=== PATIENT | male | born 1965 | race Caucasian/White ===

== ENCOUNTER 2023-03-21 16:17 | Inpatient (IN) | payer MEDICARE, OTHER ==
[~2023-03-21] VITALS: Ht 180.3 cm; Wt 68.0 kg
--- NOTE | 2023-03-21 16:54 | NUR ---
PAGED TUBE SORTER
--- NOTE | 2023-03-21 16:55 | NUR ---
lionel KERN [facility] for medical clearance prior to geropsych admit per report pt aggressive to staff.
[2023-03-21] MEDS ORDERED: OLANZAPINE 10 MG VIAL IM ONE ×2 (17:30→17:42)
[2023-03-21 17:51] LABS: BASOPHILS # (AUTO) 0.1 K/uL (0.0-0.2); BASOPHILS % (AUTO) 0.9 % (0.0-2.0); EOSINOPHILS % (AUTO) 1.7 % (0.0-6.0); HEMATOCRIT 50 % (39-51); HEMOGLOBIN 15.9 g/dL (13.5-17.5); LYMPHOCYTES # (AUTO) 1.6 K/uL (0.8-4.8); LYMPHOCYTES % (AUTO) 19.7 % (20.0-44.0); MEAN CORPUSCULAR HGB CONC 32 g/dl (31.0-36.0); MEAN CORPUSCULAR VOLUME 96 fL (80-96); MONOCYTES # (AUTO) 0.8 K/uL (0.1-1.30); MONOCYTES % (AUTO) 9.7 % (2.0-12.0); NEUTROPHILS # (AUTO) 5.6 K/uL (1.8-8.9); PLATELET COUNT (AUTO) 395 K/uL (150-450); RED BLOOD CELL COUNT(AUTO) 5.18 MIL/uL (4.5-6.0); WHITE BLOOD COUNT (AUTO) 8.2 K/uL (4.3-11.0)
[2023-03-21] MEDS ORDERED: IBUP-1953 PO (18:04)
[2023-03-21] MEDS ORDERED: HALO5SYR IM (18:04)
[2023-03-21] MEDS ORDERED: OXYC-128 PO (18:04)
[2023-03-21] MEDS ORDERED: POLY17PO4 PO (18:04)
[2023-03-21] MEDS ORDERED: ONDA4TAB5 PO (18:04)
[2023-03-21] MEDS ORDERED: TAMS-12 PO (18:04)
[2023-03-21] MEDS ORDERED: LORA-259 PO (18:04)
[2023-03-21] MEDS ORDERED: MEMA10TA PO (18:04)
[2023-03-21] MEDS ORDERED: BUSP5TAB3 PO (18:04)
[2023-03-21] MEDS ORDERED: QUET25TA PO (18:04)
[2023-03-21] MEDS ORDERED: VALP250S4 PO (18:04)
[2023-03-21] MEDS ORDERED: DIPH50VI14 IM (18:04)
[2023-03-21 18:12] LABS: ALANINE AMINOTRANSFERASE 18 U/L (12-78); ALBUMIN 3.6 g/dL (3.4-5.0); ALCOHOL, BLOOD < 3 mg/dL (0-0); ALKALINE PHOSPHATASE 74 U/L (46-116); ASPARTATE AMINOTRANSFERASE 37 U/L (15-37); BILIRUBIN,DIRECT 0.1 mg/dL (0.0-0.2); BILIRUBIN,TOTAL 0.7 mg/dL (0.2-1.0); CALCIUM, SERUM 9.2 mg/dL (8.5-10.1); CARBON DIOXIDE 23 mmol/L (21-32); CHLORIDE 107 mmol/L (98-107); CREATININE 1.1 mg/dL (0.6-1.3); GLUCOSE 98 mg/dL (74-106); POTASSIUM 4.3 mmol/L (3.5-5.1); SODIUM SERUM 142 mmol/L (136-145); TOTAL PROTEIN, SERUM 7.6 g/dL (6.4-8.2); UREA NITROGEN, BLOOD 10 mg/dL (7-18)
[2023-03-21] MEDS ORDERED: oxyCODONE/APAP (5/325 MG) 1 UDTAB TABLET PO PRN (19:30)
[2023-03-21] MEDS ORDERED: POLYETHYLENE GLYCOL 3350 17 GM POWD.PACK PO PRN (19:30)
[2023-03-21] MEDS ORDERED: IBUPROFEN 400 MG TABLET PO PRN (19:30)
--- NOTE | 2023-03-21 20:05 | NUR ---
SUBMITTED MOVESHEET TO ADMITTING
--- NOTE | 2023-03-21 20:19 | NUR ---
REPORT GIVEN TO MACHO GALLARDO RN FOR QUYEN
[2023-03-21] MEDS ORDERED: ONDANSETRON HCL 4 MG/5 ML SOLUTION PO PRN (20:30)
[2023-03-21] MEDS ORDERED: ONDANSETRON 4 MG TAB.RAPDIS PO PRN (21:00)
[2023-03-21] MEDS ORDERED: MAGNESIUM HYDROXIDE 30 ML UDC PO PRN (21:30)
[2023-03-21] MEDS ORDERED: MAG HYDROX/AL HYDROX/SIMETH 30 ML UDC PO PRN (21:30)
[2023-03-21] MEDS ORDERED: ACETAMINOPHEN 325 MG TABLET PO PRN (21:30)
[2023-03-21] MEDS ORDERED: ZOLPIDEM TARTRATE 5 MG TABLET PO PRN (21:30)
[2023-03-21] MEDS ORDERED: BLOOD SUGAR DIAGNOSTIC 1 EACH STRIP IN ONE (22:00)
[2023-03-21 23:31] VITALS: BP 123/76
--- NOTE | 2023-03-21 23:50 | NUR ---
RN NOTES : ADMISSION NOTES: ADMITTED THIS 57Y/O MALE PATIENT ADMITTED FROM [facility], INITIALLY FROM SNF . ADMITTED TO 5150 HOLD PER HOLD GD , INCREASED AGITATION AND CONFUSION PT. AGITATED , CONFUSED DISORGNIZED ,NOT SLEEPING ,NON-COMPLIANT WITH MEDICATIONS AGGRESSIVE, UPON FACE TO FACE ASSESSMENT PATIENT IS A&OX1 , CONFUSED , ANXIOUS EASILY AGITATED ,DISORGNIZED, DISHELVED,POOR HYGINE, UNCOOPERTIVE,POOR DECISION MAKING,DENIES SI /HI AT THIS TIME, PT. IS POOR HISTORIAN, POOR INSIGHT ,POOR JUDGEMENT , BOTH MD AWARE AND NOTIFIED OF THE ADMISSION, BELONGINGS CONTRABAND WERE DONE , PT. REFUSED SIGNS ADMISSION CONSENT PAPER DUE TO CONFUSED,DISORGNIZED , PT. RIGHTS DISCUSS BY SUPERVISING LIBRARIAN , PROVIDE THE PT. WITH HANDBOOK, AND MEDICATIONS GUIDE, ENVIRONMENTAL SAFETY CHECK DONE, ENCOURAGED PT. VERBALIZED ANY FEELING CONCERN TO STAFF, ORIENT TO UNIT POLICY, NO ACUTE DISTRESS NOTED,VITAL SIGNS WNL ,DENIES ANY PAIN AT THIS TIME,WILL CONTINUE TO MONITOR FOR Q15 SAFETY AND BEHAVIOR.
--- NOTE | 2023-03-22 06:51 | NUR ---
RN NOTES: PT. REFUSED AM LABS DRAW , ENCOURAGED X 3 PT. STRONGLY REFUSED.
--- NOTE | 2023-03-22 07:43 | NUR ---
WOUND CARE CONSULT: PT RESTING AT THIS TIME. REVIEWED ADMISSION PHOTOS, CHART AND NURSING DOCUMENTATION WHICH INDICATES DRY SCABS/DISCOLORATIONS TO ARMS AND REDNESS/RASH TO PERINEAL AND INNER BUTTOCKS AREAS, PRESENT ON ADMISSION. RECOMMENDATIONS MADE FOR SKIN PROTECTION. DISCUSSED WITH NURSING STAFF. MD IN AGREEMENT WITH PLAN OF CARE.
[2023-03-22 08:00] VITALS: BP 140/84
[2023-03-22] MEDS: POLYETHYLENE GLYCOL 3350 17 GM POWD.PACK PO SCH (08:49)
[2023-03-22] MEDS: Z GUARD REMEDY 4 OZ OINT TP SCH (08:51)
[2023-03-22] MEDS: MEMANTINE HCL 5 MG TABLET PO SCH ×2 (08:51→17:00)
[2023-03-22] MEDS: CLOTRIMAZOLE 1% 15 GM TUBE TP SCH ×2 (08:52→17:45)
--- NOTE | 2023-03-22 09:50 | NUR ---
PAWEL Initial Discharge Note: Patient was at [facility] and then he was transferred to [address] [address]. Pt's brother in law Maxwell ([phone]) does not want pt to return back to [facility] and would want a different facility. PAWEL and Dr. Lindsay discussed pt's treatment/discharge plan. PAWEL will work with the MD, family, and treatment team to help coordinate appropriate discharge.
--- NOTE | 2023-03-22 09:50 | NUR ---
PAWEL Clinical Note: Pt placed on a 5150 hold for GD. Pt was aggressive at his facility. Patient was at [facility] and then he was transfered to [address] [address]. Pt's brother in law Maxwell ([phone]) does not want pt to return back to [facility] and would want a different facility. PAWEL and Dr. Lindsay discussed pt's treatment/discharge plan.
--- NOTE | 2023-03-22 09:51 | NUR ---
Treatment Plan: Pt unable to comprehend and was unable to sign.
[2023-03-22] MEDS: VALPROIC ACID 250 MG/5 ML UDC PO SCH ×3 (13:00→20:27)
--- NOTE | 2023-03-22 15:29 | NUR ---
GPS/RN PT REFUSED 1300 DEPACOTE OFFERED X3
[2023-03-22 16:00] VITALS: BP 122/80
[2023-03-22] MEDS: TAMSULOSIN 0.4 MG CAP.SR.24H PO SCH (18:00)
--- NOTE | 2023-03-22 20:39 | NUR ---
RECEIVED PATIENT SITTING UP IN MELVA CHAIR,AWAKE ALERT A/OX1. NO S/SX OF ACUTE DISTRESS NOTED.REFUSED TO STAYING IN BED,HIGH FALL RISKS PATIENT IS ,CONFUSED, FORGETFUL ANXIOUS, EASILY AGITATED DELUSIONAL , TALIKG TO SELF , UNCOOPERTIVE, PARANOID , GUARDED NON COMPLIANT WITH CARE ,NEEDS FREQUENTLY REDIRECTIONS, ENCOURAGED TO VERBALIZED ANY FEELING OR CONCERN ,SAFETY PRECAUTIONS MAINTAINED. WILL CONTINUE TO MONITOR Q15MIN ROUNDS FOR SAFETY.
[2023-03-22 21:07] VITALS: BP 135/96
[2023-03-22] MEDS: DONEPEZIL 5 MG TABLET PO SCH (21:26)
[2023-03-22] MEDS: QUETIAPINE FUMARATE 25 MG TABLET PO SCH (21:26)
[2023-03-23] MEDS: VALPROIC ACID 250 MG/5 ML UDC PO SCH ×3 (05:00→20:10)
[2023-03-23] MEDS: Z GUARD REMEDY 4 OZ OINT TP PRN ×2 (06:06→23:28)
[2023-03-23 08:00] VITALS: BP 135/80
[2023-03-23] MEDS: ENSURE ENLIVE CHOC 237 ML CAN PO SCH ×2 (08:00→17:40)
[2023-03-23] MEDS: POLYETHYLENE GLYCOL 3350 17 GM POWD.PACK PO SCH (09:00)
[2023-03-23] MEDS: MEMANTINE HCL 5 MG TABLET PO SCH ×2 (09:00→17:00)
[2023-03-23] MEDS: CLOTRIMAZOLE 1% 15 GM TUBE TP SCH ×2 (10:23→17:28)
[2023-03-23] MEDS: Z GUARD REMEDY 4 OZ OINT TP SCH (10:23)
[2023-03-23 16:00] VITALS: BP 136/68
[2023-03-23] MEDS: TAMSULOSIN 0.4 MG CAP.SR.24H PO SCH (17:40)
--- NOTE | 2023-03-23 19:39 | NUR ---
RN NOTES: RECEIVED PATIENT SITTING UP IN MELVA CHAIR,AWAKE ALERT A/OX1. NO S/SX OF ACUTE DISTRESS NOTED.REFUSED TO STAYING IN BED,HIGH FALL RISKS PATIENT IS ,CONFUSED, FORGETFUL ANXIOUS, EASILY AGITATED DELUSIONAL , TALIKG TO SELF , UNCOOPERTIVE, PARANOID , GUARDED, NON COMPLIANT WITH CARE ,NEEDS FREQUENTLY REDIRECTIONS, ENCOURAGED TO VERBALIZED ANY FEELING OR CONCERN ,SAFETY PRECAUTIONS MAINTAINED. WILL CONTINUE TO MONITOR Q15MIN ROUNDS FOR SAFETY.
[2023-03-23 20:00] VITALS: BP 127/78
[2023-03-23] MEDS: QUETIAPINE FUMARATE 25 MG TABLET PO SCH (21:13)
[2023-03-23] MEDS: DONEPEZIL 5 MG TABLET PO SCH (21:13)
[2023-03-24] MEDS: VALPROIC ACID 250 MG/5 ML UDC PO SCH ×3 (05:00→20:56)
--- NOTE | 2023-03-24 05:14 | NUR ---
RN NOTES: PT. REFUSED SCHEDULE MEDS , DEPAKENE , ENCOURAGED X 3 PT. STRONGLY REFUSED. PT. BEHAVIOR VERY UNCOOPERTIVE AT THIS TIME.
[2023-03-24] MEDS: POLYETHYLENE GLYCOL 3350 17 GM POWD.PACK PO SCH (07:54)
[2023-03-24 08:00] VITALS: BP 114/71
[2023-03-24] MEDS: ENSURE ENLIVE CHOC 237 ML CAN PO SCH ×2 (08:00→17:23)
[2023-03-24] MEDS: CLOTRIMAZOLE 1% 15 GM TUBE TP SCH ×2 (08:42→17:23)
[2023-03-24] MEDS: Z GUARD REMEDY 4 OZ OINT TP SCH (08:42)
[2023-03-24] MEDS: MEMANTINE HCL 5 MG TABLET PO SCH ×2 (08:49→17:23)
[2023-03-24 16:00] VITALS: BP 116/69
[2023-03-24] MEDS: TAMSULOSIN 0.4 MG CAP.SR.24H PO SCH (18:00)
[2023-03-24 21:02] VITALS: BP 114/66
[2023-03-24] MEDS: DONEPEZIL 5 MG TABLET PO SCH (21:05)
[2023-03-24] MEDS: QUETIAPINE FUMARATE 25 MG TABLET PO SCH (21:05)
[2023-03-25] MEDS: VALPROIC ACID 250 MG/5 ML UDC PO SCH ×2 (05:00→05:24)
--- NOTE | 2023-03-25 05:35 | NUR ---
RN NOTE PATIENT REFUSED SCHEDULED MEDICATION DEPAKENE AT 0500. EXPLAINED RISKS AND BENEFITS. PT. STRONGLY REFUSED. PATIENT IS VERY UNCOOPERATIVE AT THIS TIME.
[2023-03-25 08:00] VITALS: BP 130/95
[2023-03-25] MEDS: LORAZEPAM 1 MG TABLET PO PRN ×2 (08:09→16:21)
[2023-03-25] MEDS: MEMANTINE HCL 5 MG TABLET PO SCH ×2 (08:10→16:21)
[2023-03-25] MEDS: POLYETHYLENE GLYCOL 3350 17 GM POWD.PACK PO SCH (08:10)
--- NOTE | 2023-03-25 08:11 | NUR ---
RN- NOTES ATIVAN ADMINISTERED DUE TO PATIENT YELLING AND INCREASED AGITATION.
[2023-03-25] MEDS: ENSURE ENLIVE CHOC 237 ML CAN PO SCH ×2 (08:37→17:09)
[2023-03-25] MEDS: CLOTRIMAZOLE 1% 15 GM TUBE TP SCH ×2 (09:07→16:32)
[2023-03-25] MEDS: Z GUARD REMEDY 4 OZ OINT TP SCH (09:15)
[2023-03-25] MEDS: DIVALPROEX SODIUM 125 MG CAP.SPRINK PO SCH ×3 (10:30→21:50)
--- NOTE | 2023-03-25 11:05 | NUR ---
RN- NOTES 1030 DEPAKOTE SPRINKLE HELD DUE TO MORNING DOSE SCHEDULED FOR 0500 AND NEXT DOSAGE SET FOR 1300. WILL FOLLOW UP AND ADMINISTER 1300 DOSAGE.
[2023-03-25 16:00] VITALS: BP 125/85
--- NOTE | 2023-03-25 16:21 | NUR ---
RN- NOTES ATIVAN ADMINISTERED DUE TO PATIENT YELLING PROFANITIES, BANGING ON THE WALL/MELVA CHAIR TABLE AND INCREASED AGITATION.
[2023-03-25] MEDS: TAMSULOSIN 0.4 MG CAP.SR.24H PO SCH (17:09)
--- NOTE | 2023-03-25 18:44 | NUR ---
RN- CLOSING NOTES PATIENT AWAKE, SITTING IN THE MELVA CHAIR, BREATHING EVEN AND NON LABORED WITH NO S/S OF DISTRESS. PATIENT IS CONFUSED, DISORIENTED, ANXIOUS, GUARDED, HYPERVERBAL, MUMBLING TO HIMSELF AND HAS BOUTS OF AGGRESSION. PRN MEDICATIONS GIVEN DUE TO PATIENT HITTING ONEIL AND MELVA CHAIR TABLE WITH HANDS. PATIENT IS MEDICATION RESISTANT BUT MEDICATION COMPLIANT WITH ENCOURAGEMENT. DENIES SI/HI BUT IS CONFUSED AT THIS TIME. WILL CONTINUE TO MONITOR Q 15 MINUTES FOR SAFETY AND BEHAVIOR.
[2023-03-25 20:59] LABS: THYROID STIMULATING HORMONE 3.08 uIU/mL (0.358-3.74)
[2023-03-25] MEDS: QUETIAPINE FUMARATE 25 MG TABLET PO SCH (21:51)
[2023-03-25] MEDS: DONEPEZIL 5 MG TABLET PO SCH (21:51)
--- NOTE | 2023-03-25 21:58 | NUR ---
Pt unable to sleep. Least restrictive measures ineffective. Ambien 5 mg po prn crushed in pudding given as ordered. Pt took all pm meds crushed in pudding without difficulty swallowing. Aspiration precaution observed at all times. Frequent visual check done for safety, q 15 mins. Will continue to monitor. Will endorse to next shift.
--- NOTE | 2023-03-25 23:00 | NUR ---
Post 1 hr Ambien ineffective. Pt still awake. Frequent visual check q 15 mins for safety. Will continue to monitor.
--- NOTE | 2023-03-26 00:45 | NUR ---
Pt asleep in bed easy to arouse. Bed at low position and bed alarm on. Kept clean, dry, and comfortable. Frequent visual check done for safety, q 15 mins. Will continue to monitor. Will endorse to next shift.
[2023-03-26] MEDS: DIVALPROEX SODIUM 125 MG CAP.SPRINK PO SCH ×3 (05:00→17:13)
--- NOTE | 2023-03-26 05:47 | NUR ---
Pt refused 0500 Depakote 250 mg po. Pt asleep and wont wake up. Offered x 3 and explained risk and benefits. Still refused and states, " leave me alone, im sleeping." Will continue to monitor. Will endorse to next shift.
--- NOTE | 2023-03-26 07:25 | NUR ---
WAFER PRODUCTION LEAD WORKER NOTE PATIENT STARTED MOVING IN BED BUT HE DID NOT STAY AWAKE, PATIENT WENT BACK TO SLEEP. SAFETY MEASURES IN PLACE, BED LOCK TO THE LOWEST POSITION, SIDE RAILS UP X4, TABLE WITHIN REACH. CONT. TO MONITOR.
--- NOTE | 2023-03-26 07:25 | NUR ---
CLINICAL DATA ASSISTANT OPENING NOTE PATIENT SLEEPING. NO S/S OF RESPIRATORY DISTRESS NOTED, NO S/S/ OF DISCOMFORT NOTED.
[2023-03-26 08:00] VITALS: BP 118/64
[2023-03-26] MEDS: ENSURE ENLIVE CHOC 237 ML CAN PO SCH ×2 (08:00→17:00)
[2023-03-26] MEDS: Z GUARD REMEDY 4 OZ OINT TP SCH ×2 (09:00→17:15)
[2023-03-26] MEDS: CLOTRIMAZOLE 1% 15 GM TUBE TP SCH ×2 (09:00→17:15)
[2023-03-26] MEDS: POLYETHYLENE GLYCOL 3350 17 GM POWD.PACK PO SCH (09:40)
[2023-03-26] MEDS: MEMANTINE HCL 5 MG TABLET PO SCH ×2 (09:40→17:12)
[2023-03-26] MEDS: LORAZEPAM 1 MG TABLET PO PRN ×2 (12:31→20:32)
--- NOTE | 2023-03-26 13:52 | NUR ---
PAWEL Family Contact: SW attempted to contact pt's brother in law Maxwell ([phone]) to discuss discharge/placement and he stated that he is currently busy and he will call back.
[2023-03-26] MEDS: TAMSULOSIN 0.4 MG CAP.SR.24H PO SCH (17:12)
--- NOTE | 2023-03-26 19:00 | NUR ---
MEDICAL PROFESSIONALS CLOSING NOTE PATIENT ON G-CHAIR CALM, WITH FAMILY MEMBER VISITING. WILL ENDORSE TO THE FOLLOWING NURSE.
[2023-03-26 20:00] VITALS: BP 123/96
--- NOTE | 2023-03-26 20:13 | NUR ---
GPS RN NOTES HAVING MILD PAIN ON HIS NECK PER FAMILY,MEDICATED WITH MOTRIN 600MG PO ORDERED.WILL CONTINUE TO MONITOR.
[2023-03-26 20:15] VITALS: BP 123/96
--- NOTE | 2023-03-26 20:32 | NUR ---
GPS RN NOTES APPEARS ANXIOUS,ATIVAN 1MG PO GIVEN ORDERED.
[2023-03-26] MEDS: DONEPEZIL 5 MG TABLET PO SCH (21:29)
[2023-03-26] MEDS: QUETIAPINE FUMARATE 25 MG TABLET PO SCH (21:29)
--- NOTE | 2023-03-27 07:33 | NUR ---
WOUND CARE CONSULT: PT SLEEPING. REVIEWED CHART, NURSING DOCUMENTATION AND PHOTOS WHICH INDICATE SACRAL INTACT DEEP TISSUE INJURY WELL RASH TO INNER BUTTOCKS, PERINEUM, PRESENT ON ADMISSION. RECOMMENDATIONS MADE FOR SKIN PROTECTION. DISCUSSED WITH NURSING STAFF. MD IN AGREEMENT WITH PLAN OF CARE.
[2023-03-27] MEDS: ENSURE ENLIVE CHOC 237 ML CAN PO SCH ×2 (07:38→17:41)
[2023-03-27 08:00] VITALS: BP 124/79
[2023-03-27] MEDS: CLOTRIMAZOLE 1% 15 GM TUBE TP SCH ×4 (09:00→17:42)
[2023-03-27] MEDS: MEMANTINE HCL 5 MG TABLET PO SCH ×2 (09:10→17:40)
[2023-03-27] MEDS: POLYETHYLENE GLYCOL 3350 17 GM POWD.PACK PO SCH (09:11)
[2023-03-27] MEDS: DIVALPROEX SODIUM 125 MG CAP.SPRINK PO SCH ×2 (09:11→17:40)
[2023-03-27] MEDS: LORAZEPAM 1 MG TABLET PO PRN (09:11)
--- NOTE | 2023-03-27 09:51 | NUR ---
pt has duplicate order for clotrimazole at 0900 one was given.
--- NOTE | 2023-03-27 10:05 | NUR ---
SW Family Contact: SW attempted to contact pt's brother in law Hans ([phone]) and discussed placement. He would want a SNF in location of [place] or [place]. SW will consult with doctor to see which he recommends.
--- NOTE | 2023-03-27 13:09 | NUR ---
Court Notification: Hans ([phone]) notified of 5250 hearing.
--- NOTE | 2023-03-27 13:10 | NUR ---
Court Hearing: Patient's court hearing for 4120 was today and it was upheld for GD.
--- NOTE | 2023-03-27 15:41 | NUR ---
PT PRESENTS WITH HEAD TILTED DOWN AND LEANING FORWARD. ORDERED CT OF NECK AND CERVICAL SPINE. RESULTS ARRIVED AND DOCTOR NOTIFIED.
--- NOTE | 2023-03-27 15:44 | NUR ---
DOCTOR NOTIFIED BUT NO OTHER ORDERS GIVEN.
[2023-03-27 16:00] VITALS: BP 139/85
[2023-03-27] MEDS: TAMSULOSIN 0.4 MG CAP.SR.24H PO SCH (17:40)
[2023-03-27 20:19] VITALS: BP 126/81
[2023-03-27] MEDS: DONEPEZIL 5 MG TABLET PO SCH (21:36)
[2023-03-27] MEDS: QUETIAPINE FUMARATE 25 MG TABLET PO SCH (21:36)
[2023-03-28 08:00] VITALS: BP 113/74
[2023-03-28] MEDS: ENSURE ENLIVE CHOC 237 ML CAN PO SCH ×2 (08:33→16:52)
[2023-03-28] MEDS: POLYETHYLENE GLYCOL 3350 17 GM POWD.PACK PO SCH (09:05)
[2023-03-28] MEDS: DIVALPROEX SODIUM 125 MG CAP.SPRINK PO SCH ×2 (09:06→16:52)
[2023-03-28] MEDS: MEMANTINE HCL 5 MG TABLET PO SCH ×2 (09:06→16:54)
[2023-03-28] MEDS: CLOTRIMAZOLE 1% 15 GM TUBE TP SCH ×4 (09:10→17:10)
[2023-03-28] MEDS: Z GUARD REMEDY 4 OZ OINT TP SCH (09:11)
--- NOTE | 2023-03-28 11:28 | NUR ---
FACILITY CONTACT: PAWEL RECEIVED A CALL FROM FEBRUARY ([phone]) FROM [facility]. SHE WILL BE ASSESSING THE PT TODAY 03/28 DURING VISITING HOURS WITH FAMILY. Addendum: 03/29/23 at 0853 by PAWEL VAZQUEZ correct number ([phone])
[2023-03-28] MEDS: LORAZEPAM 1 MG TABLET PO PRN (15:38)
--- NOTE | 2023-03-28 15:38 | NUR ---
RN-NOTES NOTED PATIENT AGITATED, AGGRESSIVE TO THE STAFF DURING PATIENT CARE. HITTING STAFF WITH BOTH HANDS. REDIRECTED AND ATIVAN 1MG P.O GIVEN PRN ORDER. WILL CONT. MONITORING FOR SAFETY AND BEHAVIOR.
[2023-03-28 16:00] VITALS: BP 136/80
--- NOTE | 2023-03-28 16:40 | NUR ---
RN-NOTES PATIENT IN BED AWAKE, A/O X1 CALM,NO ACUTE DISTRESS NOTED.
[2023-03-28] MEDS: TAMSULOSIN 0.4 MG CAP.SR.24H PO SCH (17:08)
--- NOTE | 2023-03-28 18:19 | NUR ---
RN-NOTES PATIENT IN BED A/OX1,NEEDS MODERATE ASSIST WITH FEEDING AND ADL'S. NEEDS ASSIST WITH AMBULATIONS .GOOD MAGDA CARE RENDERED. NOTED WITH EPISODE OF AGITATION ,ARRESTIVE BEHAVIOR WITH THE STAFF DURING PATIENT CARE.PRN MEDICATION GIVEN. .COMPLIANT WITH MEDICATIONS.PATIENT NEEDS ENCOURAGEMENT AND ASSISTED IN REPOSITIONING Q2 HR . NEEDS FREQUENT REDIRECTIONS AND ORIENTATION.ALL NEEDS ATTENDED AND ANTICIPATED. WILL CONT.MONITORING FOR SAFETY AND BEHAVIOR. WILL ENDORSE TO INCOMING NURSE FOR THE CONTINUITY OF CARE.
--- NOTE | 2023-03-28 20:00 | NUR ---
RN NOTES: RECEIVED PATIENT RESTING IN BED AT THIS TIME A/OX1. NO S/SX OF ACUTE DISTRESS NOTED ,HIGH FALL RISKS PATIENT IS CONFUSED, FORGETFUL ANXIOUS, EASILY AGITATED DELUSIONAL , TALIKG TO SELF , UNCOOPERTIVE, PARANOID , GUARDED ,NEEDS FREQUENTLY REDIRECTIONS, ENCOURAGED TO VERBALIZED ANY FEELING OR CONCERN ,SAFETY PRECAUTIONS MAINTAINED. WILL CONTINUE TO MONITOR Q15MIN ROUNDS FOR SAFETY.
[2023-03-28 20:18] VITALS: BP 115/72
[2023-03-28] MEDS: QUETIAPINE FUMARATE 25 MG TABLET PO SCH (21:39)
[2023-03-28] MEDS: DONEPEZIL 5 MG TABLET PO SCH (21:39)
[2023-03-29] MEDS: Z GUARD REMEDY 4 OZ OINT TP PRN ×2 (05:45→22:11)
[2023-03-29 08:00] VITALS: BP 103/70
[2023-03-29] MEDS: POLYETHYLENE GLYCOL 3350 17 GM POWD.PACK PO SCH (08:01)
[2023-03-29] MEDS: ENSURE ENLIVE CHOC 237 ML CAN PO SCH (08:01)
[2023-03-29] MEDS: DIVALPROEX SODIUM 125 MG CAP.SPRINK PO SCH ×2 (08:01→16:15)
[2023-03-29] MEDS: Z GUARD REMEDY 4 OZ OINT TP SCH (08:02)
[2023-03-29] MEDS: MEMANTINE HCL 5 MG TABLET PO SCH ×2 (08:03→16:16)
[2023-03-29] MEDS: CLOTRIMAZOLE 1% 15 GM TUBE TP SCH ×4 (08:58→16:16)
[2023-03-29] MEDS ORDERED: NEPRO VAN 237 ML CAN PO PRN (09:00)
[2023-03-29 16:00] VITALS: BP 116/77
[2023-03-29] MEDS: LORAZEPAM 1 MG TABLET PO PRN (16:16)
--- NOTE | 2023-03-29 16:16 | NUR ---
NURSE NOTE: PT AGITATED AT THIS TIME. YELLING OUTBURSTS. ATIVAN PO ADMINISTERED ORDERED. PT KEHINDE WELL. WILL CONT TO MONITOR.
--- NOTE | 2023-03-29 17:16 | NUR ---
NURSE NOTE: PT CONT AGITATED, HAVING OUTBURSTS OF YELLING. PT PLACED IN QUIET AREA. AT THIS TIME. WILL CONT TO MONITOR.
[2023-03-29] MEDS: TAMSULOSIN 0.4 MG CAP.SR.24H PO SCH (18:11)
--- NOTE | 2023-03-29 19:52 | NUR ---
RN NOTES: RECEIVED PATIENT SITTING UP IN MELVA CHAIR,AWAKE ALERT A/OX1. NO S/SX OF ACUTE DISTRESS NOTED.REFUSED TO STAYING IN BED,HIGH FALL RISKS PATIENT IS ,CONFUSED, FORGETFUL ANXIOUS, EASILY AGITATED DELUSIONAL , TALIKG TO SELF , UNCOOPERTIVE, PARANOID , GUARDED, FAMILY MEMEBER TALKING WITH PATIENT ,NON COMPLIANT WITH CARE ,NEEDS FREQUENTLY REDIRECTIONS, ENCOURAGED TO VERBALIZED ANY FEELING OR CONCERN ,SAFETY PRECAUTIONS MAINTAINED. WILL CONTINUE TO MONITOR Q15MIN ROUNDS FOR SAFETY.
[2023-03-29 21:05] VITALS: BP 124/91
[2023-03-29] MEDS: QUETIAPINE FUMARATE 25 MG TABLET PO SCH (21:08)
[2023-03-29] MEDS: DONEPEZIL 5 MG TABLET PO SCH (21:08)
--- NOTE | 2023-03-30 07:10 | NUR ---
RECEIVED PATIENT SLEEPING BUT AROUSABLE, A/OX1. NO S/SX OF ACUTE DISTRESS NOTED AT THIS TIME. PATIENT IS FALL RISK PATIENT IS AND ENDORSED BY PM SHIFT NURSE CONFUSED, FORGETFUL ANXIOUS, EASILY AGITATED DELUSIONAL , TALKING TO SELF , UNCOOPERATIVE, PARANOID AND GUARDED. WILL CONTINUE TO MONITOR THE PATIENT FOR QUYEN
[2023-03-30 08:00] VITALS: BP 104/73
[2023-03-30] MEDS: CLOTRIMAZOLE 1% 15 GM TUBE TP SCH ×4 (08:53→16:32)
[2023-03-30] MEDS: MEMANTINE HCL 5 MG TABLET PO SCH ×2 (08:53→16:32)
[2023-03-30] MEDS: POLYETHYLENE GLYCOL 3350 17 GM POWD.PACK PO SCH (08:54)
[2023-03-30] MEDS: DIVALPROEX SODIUM 125 MG CAP.SPRINK PO SCH ×2 (08:54→16:33)
[2023-03-30] MEDS: LORAZEPAM 1 MG TABLET PO PRN (08:54)
[2023-03-30] MEDS: Z GUARD REMEDY 4 OZ OINT TP SCH (09:07)
--- NOTE | 2023-03-30 09:15 | NUR ---
Medications given to patient as ordered, crushed with apple sauce, follow through with water. Patient compliant
--- NOTE | 2023-03-30 13:22 | NUR ---
Dr. Jones in the unit and ordered to transferred pt. to Med-Surg for the preparation of the surgery. Dr. Lindsay made aware ordered to D/C pt. to Med-Surg and D/C hold and continue same meds including prn.
--- NOTE | 2023-03-30 13:56 | NUR ---
Cinthia Maxwell made aware of the transfer to Med-Surg.
[2023-03-30 16:00] VITALS: BP 127/54
--- NOTE | 2023-03-30 17:05 | NUR ---
Endorsement to MARY Torres of [address] [place] [address] done, all questions answered, awaiting admission in the system. Patient will go to [phone]
[2023-03-30] MEDS: TAMSULOSIN 0.4 MG CAP.SR.24H PO SCH (17:13)
[2023-03-30] MEDS ORDERED: QUET25TA PO (17:49)
[2023-03-30] MEDS ORDERED: ACET-868 PO (17:49)
[2023-03-30] MEDS ORDERED: NUT.237L67 PO (17:49)
[2023-03-30] MEDS ORDERED: CLOT15CR27 TP (17:49)
[2023-03-30] MEDS ORDERED: ONDA4TAB11 PO (17:49)
[2023-03-30] MEDS ORDERED: ALLA266C2 TP (17:49)
[2023-03-30] MEDS ORDERED: DIVA125C5 PO (17:49)
[2023-03-30] MEDS ORDERED: DONE5TAB34 PO (17:49)
[2023-03-30] MEDS ORDERED: LORA-259 PO (17:49)
--- NOTE | 2023-04-01 08:53 | NUR ---
SW Transfer Note: Patient transferred to medical floor due to CONSULTING HR PROFESSIONAL Shunt Procedure. Dr. Lindsay discontinued hold. Patient was accepted at [facility] Address: [address], [place] [address]; ([phone]). Brother in law Maxwell ([phone]) is aware and agreeable of the surgery.
== END 2023-03-30 18:49 | disposition short-term general hospital (02) | DRG 884 ==
LOC: ER 19:14 → GPS 20:10
PROVIDERS: ADMIT Psychiatry & Neurology Psychiatry; ATTEND Nurse Practitioner Acute Care
DX: F06.8 Other specified mental disorders due to known physiological condition (principal); F03.918 Unspecified dementia, unspecified severity, with other behavioral disturbance; F03.911 Unspecified dementia, unspecified severity, with agitation; G91.1 Obstructive hydrocephalus; G93.40 Encephalopathy, unspecified; M19.90 Unspecified osteoarthritis, unspecified site; N40.0 Benign prostatic hyperplasia without lower urinary tract symptoms; F10.21 Alcohol dependence, in remission; Z79.899 Other long term (current) drug therapy; R26.89 Other abnormalities of gait and mobility
CPT/HCPCS: 36415; 70450-TC; 70490-TC; 72125-TC; 80048-TC; 80076-TC; 80164-TC; 82607-TC; 82962-TC; 84443-TC; 85025-TC; 87081-TC; 97112-TC; 97116-TC; 97530-TC; G0480; J3490; Q0162

== ENCOUNTER 2023-03-30 17:38 | Inpatient (IN) | payer MEDICARE, OTHER ==
[~2023-03-30] VITALS: Ht 180.3 cm; Wt 49.6 kg
[~2023-03-30 17:38] MED LIST: IBUP-1953 PO; MEMA10TA PO; ONDA4TAB5 PO; OXYC-128 PO; POLY17PO4 PO; TAMS-12 PO
[2023-03-30] MEDS ORDERED: DIVA125C5 PO (17:49)
[2023-03-30] MEDS ORDERED: ALLA266C2 TP (17:49)
[2023-03-30] MEDS ORDERED: ONDA4TAB11 PO (17:49)
[2023-03-30] MEDS ORDERED: ACET-868 PO (17:49)
[2023-03-30] MEDS ORDERED: NUT.237L67 PO (17:49)
[2023-03-30] MEDS ORDERED: QUET25TA PO (17:49)
[2023-03-30] MEDS ORDERED: CLOT15CR27 TP (17:49)
[2023-03-30] MEDS ORDERED: DONE5TAB34 PO (17:49)
[2023-03-30] MEDS ORDERED: LORA-259 PO (17:49)
--- NOTE | 2023-03-30 18:15 | NUR ---
RN NOTE Received patient via [facility]. Patient is A? Addendum: 03/30/23 at 1847 by GURJIT ARTHUR RN ADD: Patient from GPS, A/O x 1, confused. On room air, breathing evenly and unlabored. No SOB or s/s of distress noted. IV access inserted on Right hand #20 SL, intact and patent, flushes well. Bilateral soft wrist restraints placed. VS taken as follows: BP 147/80, HR 90, RR 18, Temp 97, SPO2 97%. Will endorse to special investigation unit investigator nurse for QUYEN.
--- NOTE | 2023-03-30 19:20 | NUR ---
MS COVER CREASER NOTE RECEIVED PATIENT FROM NURSE PEARSON. PT CAME FROM GPS, WITH DIAGNOSTIC OF ENCEPHALOPATHY, PRE-SURGERY, SHUNT PLACEMENT. PT IS A/O X1, UNABLE TO VERBALIZE NEEDS. NO SOB, NO RESPIRATORY DISTRESS NOTED. NO PAIN OR DISCOMFORT SEEN AT THIS TIME. IV ACCESS TO RIGHT HAND #20G, IV INTACT, AND PATENT. SKIN ASSESSMENT COMPLETED. PT HAS REDNESS TO SACRUM, ANUS, SCROTUM, RIGHT ELBOW, AND LEFT HEEL, BRUISES TO BUE, AND BLE. PICTURES TAKEN, AND PLACED IN CHART. BELONGING LIST PLACED IN CHART. PT ON BILATERAL SOFT WRIST RESTRAINTS FOR SAFETY. SAFETY MEASURES IN PLACE: BED IN LOW POSITION, SR UP X2, CALL LIGHT WITHIN REACH. WILL CONTINUE TO MONITOR PT.
[2023-03-30] MEDS ORDERED: MAG HYDROX/AL HYDROX/SIMETH 30 ML UDC PO PRN (20:30)
[2023-03-30] MEDS ORDERED: ONDANSETRON HCL/PF 4 MG/2 ML VIAL IVP PRN (20:30)
[2023-03-30] MEDS ORDERED: MAGNESIUM HYDROXIDE 30 ML UDC PO PRN (20:30)
[2023-03-30] MEDS ORDERED: Z GUARD REMEDY 4 OZ OINT TP PRN (20:30)
[2023-03-30] MEDS ORDERED: ZOLPIDEM TARTRATE 5 MG TABLET PO PRN (20:30)
[2023-03-30] MEDS ORDERED: ACETAMINOPHEN 325 MG TABLET PO PRN (20:30)
[2023-03-31] MEDS ORDERED: oxyCODONE/APAP (5/325 MG) 1 UDTAB TABLET PO PRN
[2023-03-31] MEDS ORDERED: ACETAMINOPHEN 325 MG TABLET PO PRN
[2023-03-31] MEDS ORDERED: ONDANSETRON 4 MG TAB.RAPDIS PO PRN
[2023-03-31] MEDS ORDERED: POLYETHYLENE GLYCOL 3350 17 GM POWD.PACK PO PRN
[2023-03-31] MEDS ORDERED: LORAZEPAM 1 MG TABLET PO PRN
[2023-03-31] MEDS ORDERED: IBUPROFEN 400 MG TABLET PO PRN
--- NOTE | 2023-03-31 06:55 | NUR ---
MS RN CLOSING NOTE LEFT PATIENT SLEEPING IN BED, EASY TO AROUSE. PT IS A/O X1, UNABLE TO VERBALIZE NEEDS. NO SOB, NO RESPIRATORY DISTRESS NOTED. NO PAIN OR DISCOMFORT SEEN AT THIS TIME. IV ACCESS TO RIGHT HAND #20G, IV INTACT, AND PATENT. PT ON BILATERAL SOFT WRIST RESTRAINTS FOR SAFETY. SAFETY MEASURES IN PLACE: BED IN LOW POSITION, SR UP X2, CALL LIGHT WITHIN REACH. WILL ENDORSE PT TO AM SHIFT NURSE FOR QUYEN.
--- NOTE | 2023-03-31 07:30 | NUR ---
PATIENT RECEIVED RESTING COMFORTABLY IN BED WITH EYES CLOSED. NO S/S OR C/O PAIN OR DISTRESS NOTED. SIDE RAILS UP X2, CALL LIGHT LEFT WITHIN REACH. WILL CONTINUE PLAN OF CARE.
[2023-03-31 08:14] VITALS: BP 121/86
[2023-03-31 08:20] LABS: BASOPHILS # (AUTO) 0.1 K/uL (0.0-0.2); BASOPHILS % (AUTO) 0.7 % (0.0-2.0); EOSINOPHILS % (AUTO) 1.8 % (0.0-6.0); HEMATOCRIT 42 % (39-51); HEMOGLOBIN 14.1 g/dL (13.5-17.5); LYMPHOCYTES # (AUTO) 1.2 K/uL (0.8-4.8); LYMPHOCYTES % (AUTO) 15.9 % (20.0-44.0); MEAN CORPUSCULAR HGB CONC 34 g/dl (31.0-36.0); MEAN CORPUSCULAR VOLUME 93 fL (80-96); MONOCYTES # (AUTO) 0.5 K/uL (0.1-1.30); MONOCYTES % (AUTO) 6.7 % (2.0-12.0); NEUTROPHILS # (AUTO) 5.9 K/uL (1.8-8.9); NEUTROPHILS % (AUTO) 74.9 % (43.0-81.0); PLATELET COUNT (AUTO) 342 K/uL (150-450); WHITE BLOOD COUNT (AUTO) 7.8 K/uL (4.3-11.0)
[2023-03-31 08:34] LABS: CALCIUM, SERUM 8.8 mg/dL (8.5-10.1); CREATININE 0.8 mg/dL (0.6-1.3); MAGNESIUM 2.4 mg/dL (1.8-2.4); PHOSPHORUS 3.5 mg/dL (2.5-4.9); POTASSIUM 3.7 mmol/L (3.5-5.1)
[2023-03-31] MEDS: DIVALPROEX SODIUM 125 MG CAP.SPRINK PO SCH ×2 (08:41→21:18)
[2023-03-31] MEDS: NEPRO VAN 237 ML CAN PO SCH ×2 (08:41→18:12)
[2023-03-31] MEDS: POLYETHYLENE GLYCOL 3350 17 GM POWD.PACK PO SCH (08:41)
[2023-03-31] MEDS: CLOTRIMAZOLE 1% 15 GM TUBE TP SCH ×2 (08:42→18:13)
[2023-03-31] MEDS: MEMANTINE HCL 5 MG TABLET PO SCH ×2 (08:42→18:12)
[2023-03-31 10:00] VITALS: BP 121/86
[2023-03-31 16:05] VITALS: BP 125/85
--- NOTE | 2023-03-31 17:30 | NUR ---
LOOSE BM. BROWN, WATERY. FIRST NOTE OF DIARRHEA. AT ABOUT 1630, VISITOR STATED THEY FED PATIENT A FRAPPUCCINO FROM [employer]. WILL CONTINUE TO MONITOR
[2023-03-31] MEDS ORDERED: TAMSULOSIN 0.4 MG CAP.SR.24H PO SCH (18:00)
--- NOTE | 2023-03-31 18:33 | NUR ---
CHANGE OF SHIFT REPORT PATIENT RESTING COMFORTABLY IN BED. NO S/S OR C/O PAIN OR DISTRESS NOTED. SIDE RAILS UP X2, CALL LIGHT LEFT WITHIN REACH. PT KEPT CLEAN, DRY, AND COMFORTABLE. NO SIGNIFICANT CHANGSE SINCE PREVIOUS SHIFT. WILL GIVE REPORT TO DAKOTA. MARY.
--- NOTE | 2023-03-31 20:00 | NUR ---
ms suzy initial notes received pt in bed resting with eyes closed , no signs of any distress , discomfort noted. He also on soft wrist restraint but i released the one because pt sleeping at this time. kept him warm and comfortable at all times. will continue monitoring.
[2023-03-31 20:26] VITALS: BP 116/80
[2023-03-31] MEDS ORDERED: QUETIAPINE FUMARATE 25 MG TABLET PO SCH (22:00)
[2023-03-31] MEDS ORDERED: DONEPEZIL 5 MG TABLET PO SCH (22:00)
[2023-04-01 07:00] VITALS: BP 135/74
--- NOTE | 2023-04-01 07:00 | NUR ---
MS RN OPENING NOTES: RECEIVED PT IN BED ASLEEP EASILY AROUSED WITH STIMULI. PT A/O X1 CONFUSED AND FORGETFUL. NO SOB OR CARDIAC DISTRESS NOTED. WITH RIGHT ARM SOFT RESTRAINT NOTED. IV ACCESS ON RIGHT HAND GAUGE 20 PATENT AND INTACT AND SALINE LOCKED. SAFETY MEASURES MAINTAINED: BED LOCKED AND IN LOWEST POSITION, SIDERAILS UP X 2. CALL LIGHT IN EASY REACH AND WILL MONITOR PT ACCORDINGLY.
--- NOTE | 2023-04-01 07:23 | NUR ---
MS GREEN MARKETER CLOSING NOTES PT BACK TO SLEEP AFTER SPONGE BATH RENDERED WITH THE HELPED OF ELISE THEN WE REPOSITION HIM FOR COMFORT. STABLE THROUGHOUT THE NIGHT AND ALL DUE MEDS GIVEN AND PT TOLERATED WELL. NO SIGNS OF ANY DISTRESS NOTED AT THIS TIME. ENDORSE TO AM NURSE FOR CONTINUITY OF CARE.
[2023-04-01] MEDS: NEPRO VAN 237 ML CAN PO SCH (07:52)
[2023-04-01] MEDS: DIVALPROEX SODIUM 125 MG CAP.SPRINK PO SCH (08:48)
[2023-04-01] MEDS: POLYETHYLENE GLYCOL 3350 17 GM POWD.PACK PO SCH (08:49)
[2023-04-01] MEDS: MEMANTINE HCL 5 MG TABLET PO SCH (08:49)
--- NOTE | 2023-04-01 08:55 | NUR ---
SW Transfer Note: Patient transferred to medical floor due to PIECE DYEING MACHINE TENDER Shunt Procedure. Dr. Lindsay discontinued hold. Patient was accepted at [facility] Address: [address], [place] [address]; ([phone]). Brother in law Maxwell ([phone]) is aware and agreeable of the surgery.
[2023-04-01] MEDS: CLOTRIMAZOLE 1% 15 GM TUBE TP SCH (09:37)
--- NOTE | 2023-04-01 11:23 | NUR ---
DISCHARGE NOTES: PATIENT TRANSFERRED TO [facility] FOR [facility] FOR PROTOTYPER SHUNT PLACEMENT DX HYDROCEPHALUS. REPORT GIVEN TO [facility] DEPARTMENT [phone]. PT A/O X1 CONFUSED. SISTER LIAM WHALEY MADE AWARE VIA PHONE CALL. DISCHARGE PAPERS DONE. SKIN ASSESSMENT DONE AND PHOTOS FILED ON PT'S CHART. BELONGINGS WITH PT ENDORSED TO BOMB SQUAD OFFICER. PT LEFT THE UNIT STABLE VIA GURMULU.
== END 2023-04-01 11:24 | disposition short-term general hospital (02) | DRG 57 ==
LOC: MED 17:38
PROVIDERS: ADMIT Student in an Organized Health Care Education/Training Program
DX: G91.1 Obstructive hydrocephalus (principal); F03.92 Unspecified dementia, unspecified severity, with psychotic disturbance; F23 Brief psychotic disorder; N40.0 Benign prostatic hyperplasia without lower urinary tract symptoms; Z20.822 Contact with and (suspected) exposure to COVID-19; M19.90 Unspecified osteoarthritis, unspecified site; Z73.6 Limitation of activities due to disability; R26.9 Unspecified abnormalities of gait and mobility; F10.21 Alcohol dependence, in remission; Z79.899 Other long term (current) drug therapy
CPT/HCPCS: 36415; 80048-TC; 83735-TC; 84100-TC; 85025-TC; 87081-TC; G0378